=== PATIENT | female | born 1955 | race Caucasian/White ===

== ENCOUNTER → 2017-10-14 | Outpatient (CLI) | payer OTHER ==
[~2017-10-14] MED LIST: CELEXA; CONCERTA; SERT100 PO; WELLBUTRIN
[2017-10-14 15:45] LABS: Source, Urine Clean Catch
[2017-10-14 16:17] LABS: Appearance, Urine Hazy (Clear); Bilirubin, Urine Neg (Neg); Blood, Urine 5+ (Neg); Color, Urine Yellow (P-Yellow); Glucose Qualitative, Urine Neg (Neg); Ketones, Urine Neg (Neg); Leukocyte Esterase, Urine 1+ (Neg); Nitrite, Urine Neg (Neg); Protein, Urine 2+ (Neg); Urobilinogen, Urine NORM (Normal)
[2017-10-14 16:35] LABS: Bacteria Mod /hpf; Red Blood Cells, Urine 25-50 /hpf (0-2); Squamous Epithelial Cells Mod /hpf (Few)
== END | disposition home or self-care (01) ==
LOC: LAB 15:44
PROVIDERS: Family Medicine
DX: R35.0 Frequency of micturition (principal)
CPT/HCPCS: 81001; 87086

== ENCOUNTER → 2017-10-17 | Outpatient (CLI) | payer OTHER ==
[2017-10-17 16:04] LABS: Source, Urine Clean Catch
[2017-10-17 16:12] LABS: Bilirubin, Urine Neg (Neg); Blood, Urine 3+ (Neg); Glucose Qualitative, Urine Neg (Neg); Ketones, Urine Neg (Neg); Leukocyte Esterase, Urine Neg (Neg); Nitrite, Urine Neg (Neg); Protein, Urine Neg (Neg); Urobilinogen, Urine NORM (Normal)
[2017-10-17 16:16] LABS: Appearance, Urine Clear (Clear); Color, Urine Yellow (P-Yellow)
[2017-10-17 16:22] LABS: Squamous Epithelial Cells Few /hpf (Few); White Blood Cells, Urine 0-2 /hpf (0-5)
[2017-10-17 16:23] LABS: Bacteria Mod /hpf; Calcium Oxalate Crystals Mod /hpf
== END | disposition home or self-care (01) ==
LOC: LAB SHORT 14:30
PROVIDERS: Family Medicine
DX: R30.0 Dysuria (principal)
CPT/HCPCS: 81001; 87086

== ENCOUNTER → 2017-10-21 | Outpatient (CLI) | payer OTHER | END | disposition home or self-care (01) | LOC: LAB 16:29 | DX: R10.2 Pelvic and perineal pain (principal) | CPT/HCPCS: 82360 ==

== ENCOUNTER 2017-11-05 09:48 | Emergency (ER) | payer OTHER ==
[~2017-11-05] VITALS: Ht 172.7 cm; Wt 116.1 kg
[~2017-11-05 09:48] MED LIST changes: -SERT100 PO
[2017-11-05] MEDS ORDERED: SERT100 PO (10:16)
[2017-11-05 10:32] LABS: BASOPHILS ABSOLUTE AUTO 0.03 K/mm3 (0.00-0.23); BASOPHILS PERCENT AUTO 0 % (0-2); EOSINOPHILS ABSOLUTE AUTO 0.23 K/mm3 (0.00-0.68); EOSINOPHILS PERCENT AUTO 3 % (0-6); Hematocrit 45.3 % (33.0-51.0); Hemoglobin 13.7 g/dL (11.5-16.0); IMMATURE GRAN ABSOLUTE AUTO 0.02 K/mm3 (0.00-0.10); IMMATURE GRAN PERCENT AUTO 0 % (0-1); LYMPHOCYTES ABSOLUTE AUTO 1.64 K/mm3 (0.84-5.20); LYMPHOCYTES PERCENT AUTO 24 % (21-46); MONOCYTES ABSOLUTE AUTO 0.58 K/mm3 (0.16-1.47); MONOCYTES PERCENT AUTO 8 % (4-13); Mean Corpuscular HGB 26.9 pg (26.0-34.0); Mean Corpuscular HGB Conc 30.2 g/dL (31.5-36.5); Mean Corpuscular Volume 89 fL (80-100); NEUTROPHILS ABSOLUTE AUTO 4.46 K/mm3 (1.96-9.15); NEUTROPHILS PERCENT AUTO 64 % (41-73); RDW Coefficient Variation 15.1 % (11.7-14.2); RDW Standard Deviation 49.3 fL (35.1-46.3); Red Blood Cell Count 5.09 M/mm3 (3.80-5.20); White Blood Cell Count 6.96 K/mm3 (4.00-11.30)
[2017-11-05 10:36] LABS: Mean Platelet Volume 11.2 fL (9.1-12.4); Platelet Count 151 K/mm3 (150-400)
[2017-11-05 10:46] LABS: Troponin I <0.015 ng/mL (0.000-0.040)
[2017-11-05 11:07] LABS: Alanine Aminotransfer (ALT/SGP 17 U/L (12-78); Albumin, Blood 3.4 g/dL (3.4-5.0); Albumin/Globulin Ratio 0.8 (0.8-1.8); Alk Phos 107 U/L (50-136); Anion Gap 7 mmol/L (6-16); Aspartate Aminotrans (AST/SGOT 32 U/L (12-37); Bilirubin, Total 0.8 mg/dL (0.1-1.0); Blood Urea Nitrogen 13 mg/dL (8-24); Bun/Creatinine Ratio 21.7 (12.0-20.0); CO2, Blood 21 mmol/L (21-32); Calcium, Blood 9.4 mg/dL (8.5-10.1); Chloride, Blood 114 mmol/L (98-108); Globulin, Blood 4.2 g/dL (2.2-4.0); Glomerular Filtration Rate >60 (60-); Glucose, Blood 101 mg/dL (70-99); Potassium, Blood 5.1 mmol/L (3.5-5.5); Sodium, Blood 142 mmol/L (136-145); Total Protein, Blood 7.6 g/dL (6.4-8.2)
== END 2017-11-05 12:15 | disposition home or self-care (01) ==
LOC: ER 09:48
PROVIDERS: Emergency Medicine
DX: M54.12 Radiculopathy, cervical region (principal); Z88.1 Allergy status to other antibiotic agents; Z79.899 Other long term (current) drug therapy
CPT/HCPCS: 36415; 71046; 72040; 80053; 84484; 85025; 93005; 93010; 99284

== ENCOUNTER 2018-10-19 06:40 | Inpatient (IN) | payer OTHER ==
[~2018-10-19] VITALS: Ht 167.6 cm; Wt 120.2 kg
[~2018-10-19 06:40] MED LIST changes: +SERT100 PO
[2018-10-19] MEDS ORDERED: CYAN500 PO (07:43)
[2018-10-19] MEDS ORDERED: CHOL10002 (07:44)
[2018-10-19 07:50] LABS: PCO2 Arterial 37 mmHg (35-45); PO2 Arterial 75 mmHg (80-100); pH Blood Arterial 7.37 (7.35-7.45)
[2018-10-19 07:58] LABS: Albumin, Blood 3.6 g/dL (3.4-5.0); Albumin/Globulin Ratio 0.8 (0.8-1.8); Anion Gap 12 mmol/L (6-16); Blood Urea Nitrogen 11 mg/dL (8-24); Bun/Creatinine Ratio 11.8 (12.0-20.0); CO2, Blood 22 mmol/L (21-32); Calcium, Blood 9.5 mg/dL (8.5-10.1); Chloride, Blood 109 mmol/L (98-108); Creatinine, Blood 0.93 mg/dL (0.40-1.00); Globulin, Blood 4.3 g/dL (2.2-4.0); Glomerular Filtration Rate >60 (60-); Glucose, Blood 136 mg/dL (70-99); Magnesium, Blood 2.3 mg/dL (1.6-2.4); Potassium, Blood 3.8 mmol/L (3.5-5.5); Sodium, Blood 143 mmol/L (136-145); Total Protein, Blood 7.9 g/dL (6.4-8.2)
[2018-10-19 07:59] LABS: Alanine Aminotransfer (ALT/SGP 20 U/L (12-78); Alk Phos 102 U/L (50-136); Aspartate Aminotrans (AST/SGOT 15 U/L (12-37); Bilirubin, Total 0.9 mg/dL (0.1-1.0); Troponin I 0.065 ng/mL (0.000-0.040)
[2018-10-19 08:38] LABS: BASOPHILS ABSOLUTE AUTO 0.02 K/mm3 (0.00-0.23); BASOPHILS PERCENT AUTO 0 % (0-2); EOSINOPHILS ABSOLUTE AUTO 0.01 K/mm3 (0.00-0.68); EOSINOPHILS PERCENT AUTO 0 % (0-6); Hematocrit 45.3 % (33.0-51.0); Hemoglobin 13.9 g/dL (11.5-16.0); IMMATURE GRAN ABSOLUTE AUTO 0.06 K/mm3 (0.00-0.10); IMMATURE GRAN PERCENT AUTO 0 % (0-1); LYMPHOCYTES ABSOLUTE AUTO 1.16 K/mm3 (0.84-5.20); LYMPHOCYTES PERCENT AUTO 8 % (21-46); MONOCYTES PERCENT AUTO 6 % (4-13); Mean Corpuscular HGB 27.5 pg (26.0-34.0); Mean Corpuscular HGB Conc 30.7 g/dL (31.5-36.5); Mean Corpuscular Volume 90 fL (80-100); NEUTROPHILS ABSOLUTE AUTO 11.88 K/mm3 (1.96-9.15); NEUTROPHILS PERCENT AUTO 85 % (41-73); RDW Coefficient Variation 15.2 % (11.7-14.2); RDW Standard Deviation 50.4 fL (35.1-46.3); Red Blood Cell Count 5.06 M/mm3 (3.80-5.20); White Blood Cell Count 14.03 K/mm3 (4.00-11.30)
[2018-10-19 08:48] LABS: Mean Platelet Volume 11.8 fL (9.1-12.4)
[2018-10-19 09:03] LABS: Platelet Count 114 K/mm3 (150-400)
[2018-10-19 09:12] LABS: Influenza A Negative (NEGATIVE); Influenza B Negative (NEGATIVE)
[2018-10-19 10:20] LABS: Source, Urine Clean Catch
[2018-10-19 10:27] LABS: Appearance, Urine Clear (Clear); Bilirubin, Urine Neg (Neg); Blood, Urine 2+ (Neg); Color, Urine Yellow (P-Yellow); Glucose Qualitative, Urine Neg (Neg); Ketones, Urine 2+ (Neg); Leukocyte Esterase, Urine 1+ (Neg); Nitrite, Urine Neg (Neg); Protein, Urine 2+ (Neg); Specific Gravity, Urine 1.015 (1.003-1.022); Urobilinogen, Urine 1+ (Normal)
[2018-10-19 10:44] LABS: Red Blood Cells, Urine 0-2 /hpf (0-2); Squamous Epithelial Cells Mod /hpf (Few)
[2018-10-19 10:45] LABS: Bacteria Few /hpf; Mucus Light (0-Heavy)
[2018-10-19 10:46] LABS: Transitional Epithelial Cells Few /hpf (0-Rare)
[2018-10-19 15:50] LABS: International Normalized Ratio 1.08; Prothrombin Time Results 11.4 Sec (9.7-11.5)
--- NOTE | 2018-10-19 18:52 | NUR ---
increased o2 to 3l to maintain spo2 saturation greater than 90%. notified. requested cont biox, approved. order placed.
--- NOTE | 2018-10-19 23:28 | NUR ---
SHIFT SUMMARY PATIENT STARTED ON HEPARIN FOR PE, RATE PER PHARMACY. SHE IS PLEASANT, AGREEABLE AND COOPERATIVE WITH CARE. POWERGLIDE PLACED IN LEFT UPPER ARM BY MICKEY LAWRENCE RN RUNNING PER ORDERS. SHE IS A ONE PERSON STANDBY ASSIST TO THE BEDSIDE COMMODE. SHE DOES NEED SOME ASSISTANCE WITH HER LEGS IN/OUT OF BED. CURRENTLY ON 3L VIA NC, NO O2 AT BASELINE. BED LOW AND LOCKED, CALL LIGHT WITHIN REACH. PATIENT CALLS APPROPRIATELY. WILL CONT TO MONITOR.
[2018-10-20 06:27] LABS: Hematocrit 36.6 % (33.0-51.0); Mean Corpuscular HGB 27.4 pg (26.0-34.0); Mean Corpuscular HGB Conc 30.1 g/dL (31.5-36.5); Mean Corpuscular Volume 91 fL (80-100); Mean Platelet Volume 11.5 fL (9.1-12.4); Platelet Count 116 K/mm3 (150-400); RDW Coefficient Variation 15.7 % (11.7-14.2); RDW Standard Deviation 52.9 fL (35.1-46.3); Red Blood Cell Count 4.02 M/mm3 (3.80-5.20); White Blood Cell Count 8.14 K/mm3 (4.00-11.30)
[2018-10-20 06:42] LABS: Anion Gap 6 mmol/L (6-16); Blood Urea Nitrogen 8 mg/dL (8-24); Bun/Creatinine Ratio 8.7 (12.0-20.0); CO2, Blood 24 mmol/L (21-32); Calcium, Blood 8.9 mg/dL (8.5-10.1); Chloride, Blood 114 mmol/L (98-108); Creatinine, Blood 0.92 mg/dL (0.40-1.00); Glomerular Filtration Rate >60 (60-); Glucose, Blood 105 mg/dL (70-99); Sodium, Blood 144 mmol/L (136-145)
--- NOTE | 2018-10-20 08:12 | NUR ---
SHIFT SUMMARY:NO ACUTE CHANGES TO REPORT THIS SHIFT. PT A&O; CALM AND COOPERATIVE WITH CARE. LLL INFILTRATE; SADDLE PE; LOW PERFUSION INDEX ON CONT BIOX; PT USES CPAP @ HOME; CPAP ORDERED WITH RT. CONTINUOUS HEPARIN DRIP. REPORT GIVEN TO ONCOMING RN.
--- NOTE | 2018-10-20 12:05 | NUR ---
Echocardiogram completed.
--- NOTE | 2018-10-20 16:48 | NUR ---
PATIENT ALERT AND ORIENTED. HEPARIN RUNNING PER PHARM. US LEGS BEING DONE.C/O LEFT SHLDR PAIN AND MEDICATED WITH GOOD RESULTS. OXYGEN ON AND CONTINUOUS SAT MONITOR. S.O. IS TO BRING IN CPAP MACHINE. PLEASANT. COOPERATIVE. PER TECH PATIENT POSITIVE DVT LEFT LEG POPLITEAL THRU CALF. CALLED W/RESULTS AND PATIENT RUNNING 90 SYSTOLIC TODAY. ADMIT WAS 103 SYSTOLIC SO POSSIBLY PATIENT RUNS LOW. NO NEW ORDERS. PULMONARY CONSULT CALLED EARLIER. BED IN LOW POSITION. CALL LIGHT WITHIN REACH. WILL CONTINUE TO MONITOR.
--- NOTE | 2018-10-20 16:50 | NUR ---
PHARMACIST NOTIFIED OF LABS IN [facility].
--- NOTE | 2018-10-21 04:47 | NUR ---
4,200 UNIT HEPARIN BOLUS RECIEVED AND HEPARIN GTT INCREASED TO 23 UN/KG/HR (38.6 ML/HR), VERIFIED W/2ND TATI PICHARDO. NEXT APTT AT 1000.
--- NOTE | 2018-10-21 05:07 | NUR ---
SUMMARY: A/O, SPECIFIES NEEDS AND COOPERATIVE W/CARE. REMAINED AT BEDSIDE T/O NOCTE AND HAD CONVERSATION W/STAFF RE:DIAGNOSIS, TX, OUTCOMES AND POSSIBLE D/C. 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 HE WAS UNSURE OF IT'S NAME BUT PLANS TO DISCUSS THIS W/HIS AND LET STAFF KNOW SO SHE CAN POSSIBLY BE TESTED POTENTIAL CAUSE FOR BLOOD CLOTS. PT INITIALLY C/O L.SIDE/BREAST PAIN LIKELY R/T TO INFARCT CAUSED BY SADDLE PE. TORADOL RECIEVED PO PRN FOR GOOD RELIEF. PRESENT AND AWARE OF PAIN SO FENTANYL IV PRN WAS RX'D AT THAT TIME BUT WASN'T REQUIRED AFTER TORADOL. O2 WAS TITRATED UP TO 4L BLEED IN VIA CPAP AT HS TO MAINTAIN SPO2>90%. LS CLEAR AND DIM IN BASES. MILD SOB NOTED W/ANXIETY R/T SIDE PAIN BUT PT DENIED PAIN AND TROBBING TO LLE DESPITE DVT PRESENT EXTENDING FROM FEMORAL VEIN THROUGH POPLITEAL INTO CALF. HEPARIN GTT INFUSING TO R.FA IV W/4200 UNIT BOLUS RECIEVED AND RATE INCREASED TO 23 UN/KG/HR (38.6 ML/HR). NEXT APTT AT 1000. PT SBP IS IMPROVED FROM PREVIOUS, NOW 120-130'S. PT NSR AT 60'S-80'S BPM PER TELEMETRY W/O ECTOPIES. NS INFUSING TO L.UA POWERGLIDE. NO ACUTE CHANGES, VSS/AFEBRILE. WILL MONITOR AND REPORT TO DAY RN. PULMONOLOGY CONSULT PENDING, WILL ENSURE DAY STAFF ARE AWARE.
[2018-10-21 05:54] LABS: Hematocrit 33.4 % (33.0-51.0); Hemoglobin 10.1 g/dL (11.5-16.0); Mean Corpuscular HGB 27.7 pg (26.0-34.0); Mean Corpuscular HGB Conc 30.2 g/dL (31.5-36.5); Mean Corpuscular Volume 92 fL (80-100); Mean Platelet Volume 12.4 fL (9.1-12.4); Platelet Count 127 K/mm3 (150-400); RDW Coefficient Variation 15.6 % (11.7-14.2); RDW Standard Deviation 52.6 fL (35.1-46.3); Red Blood Cell Count 3.65 M/mm3 (3.80-5.20); White Blood Cell Count 6.88 K/mm3 (4.00-11.30)
--- NOTE | 2018-10-22 00:51 | NUR ---
PATIENT REPORTS INCREASE PAIN AND N/T TO RIGHT LEG; STARTING AT RIGHT LIP AND FACE. L PUPIL LARGER 5 PLUS TO RIGHT PUPIL 4MM PLUS. PUPILS EQUAL AND REACTIVE. LIFE ENRICHMENT ASSISTANT EQUAL AND SMILE WNL. ON HEPARIN DRIP 42 ml/HR MONITOR BY PHARMACY. DVT LEFT LEG. PATIENT ALERT AND ORIENTED. FAMILY PRESENT IN ROOM. HOSPITALIST DR SWANSON NOTIFIED AND REPORTS TO CONTINUE TO MONITOR. INDUSTRIAL EQUIPMENT MECHANIC RN ASSESSED PATIENT AFTER REPORTING THE ABOVE AND RN. NS INFUSING AT 75mL/HR. CALL LIGHT IN REACH. WILL CONTINUE TO MONITOR.
[2018-10-22 03:38] LABS: Hematocrit 32.7 % (33.0-51.0); Hemoglobin 9.8 g/dL (11.5-16.0); Mean Corpuscular HGB 27.1 pg (26.0-34.0); Mean Corpuscular Volume 90 fL (80-100); Mean Platelet Volume 11.4 fL (9.1-12.4); NRBC ABSOLUTE 0.02 K/mm3 (0.00-0.02); NRBC Auto 0.4 /100 WBC (0.0-0.2); Platelet Count 156 K/mm3 (150-400); RDW Coefficient Variation 15.2 % (11.7-14.2); RDW Standard Deviation 50.6 fL (35.1-46.3); Red Blood Cell Count 3.62 M/mm3 (3.80-5.20); White Blood Cell Count 5.49 K/mm3 (4.00-11.30)
--- NOTE | 2018-10-22 04:01 | NUR ---
PATIENT REPORTS REDUCED N/T AND PAIN. N/T FROM TOES UP TO LOWER THIGH ONLY ON RIGHT LEG. PUPILS REDUCED TO 3MM RIGHT AND LEFT EQUAL AND REACTIVE. DEPOT MANAGER STRONG AND EQUAL. SMILE WNL. PATIENT REPORTS FEELING BETTER. CALL LIGHT IN REACH. BED IN LOWEST POSITION. WILL CONTINUE TO MONITOR.
--- NOTE | 2018-10-22 04:24 | NUR ---
SHIFT SUMMARY PATIENT HAD AN ACUTE CHANGE. REPORTED PAIN AND N/T IN RIGHT LEG FROM TOES UP TO RIGHT LIP AND FACE. SEE NOTES. HOSPITALIST DR SWANSON NOTIFIED. PATIENT AXOX 4 AND ONE ASSIST TO BSC. TAKES MEDS WHOLE WITH WATER. POWEGLIDE NORMA INTACT. PIV INFILTRATED AND REPLACED. HEPARIN INFUSING AT 42mL/HR AND NS INFUSING AT 75mL/HR. BOLUS OF HEPARIN 4,200 GIVEN PER [facility]. DENIES SOB AND N/V. TORADOL GIVEN FOR LS RIB PAIN AND PATIENT REPORTS REDUCED PAIN. ON 4L O2 W/CPAP AND CONTINUOUS PULSE OXIMETRY. PRESENT AT BEDSIDE. VSS/AFEBRILE. CALL LIGHT IN REACH. WILL CONTINUE TO MONITOR UNTIL DAY SHIFT NURSE ASSUMES CARE.
--- NOTE | 2018-10-22 18:33 | NUR ---
SHIFT SUMMARY- PT AXO X4. PT C/O RIB PAIN. MEDS GIVEN PER [facility]. PT DENIES SOB. RESP E/U ON 2L O2 NC. DENIES N/V. PT CONT TO C/O NUMBNESS IN R THIGH. AWARE. NO NEW NEURO CHANGES THIS SHIFT. NSR AT 68 PER PCU STAY CUTTER. HEPARIN DRIP DISCONTINUED. PT STARTED ON XARELTO. AT BEDSIDE. 1 ASSIST WITH FWW TO BSC. PT BROUGHT IN MED RECORD REQUESTED AND IS ON THE FRONT OF THE CHART. NO OTHER SIGNIFICANT CHANGES THIS SHIFT.
--- NOTE | 2018-10-23 03:02 | NUR ---
SHIFT SUMMARY PATIENT HAD NO ACUTE CHANGES OBSERVED THIS SHIFT. AXO X3 AND ONE ASSIST TO BSC. POWERGLIDE NORMA AND PIV REMAIN INTACT. NS INFUSING AT 75 mL/HR. C/O RIB PAIN AND TORADOL IV GIVEN PER [facility]. NUMBNESS ONLY TO R THIGH THIS SHIFT. KILN HEAD HOUSE OPERATOR REPORTS SB 57. AT BEDSIDE. VSS/AFEBRILE. ON 2.5 L O2 NC. USES CPAP WITH CONTINUOUS PULSE OXIMETRY. CALL LIGHT IN REACH. BED IN LOWEST POSITION. WILL CONTINUE TO MONITOR UNTIL DAY SHIFT NURSE ASSUMES CARE.
[2018-10-23 05:33] LABS: Hematocrit 33.3 % (33.0-51.0); Hemoglobin 10.1 g/dL (11.5-16.0); Mean Corpuscular HGB 27.2 pg (26.0-34.0); Mean Corpuscular HGB Conc 30.3 g/dL (31.5-36.5); Mean Corpuscular Volume 90 fL (80-100); Mean Platelet Volume 11.1 fL (9.1-12.4); NRBC ABSOLUTE 0.04 K/mm3 (0.00-0.02); NRBC Auto 0.9 /100 WBC (0.0-0.2); Platelet Count 178 K/mm3 (150-400); RDW Coefficient Variation 14.9 % (11.7-14.2); RDW Standard Deviation 49.2 fL (35.1-46.3); Red Blood Cell Count 3.72 M/mm3 (3.80-5.20); White Blood Cell Count 4.49 K/mm3 (4.00-11.30)
--- NOTE | 2018-10-23 19:12 | NUR ---
NO ACUTE CHANGES NOTED THIS SHIFT, NO C/O PAIN OR DISCOMFORT. WILL CONTINUE TO MONITOR AND REPORT TO ONCOMING RN
--- NOTE | 2018-10-24 05:27 | NUR ---
SHIFT SUMMARY PT SLEPT WELL DURING THE NIGHT, UP TO BATHROOM X1 PER SELF. OFFERS NO C/O'S PAIN. NO ACUTE CHANGES NOTED, CPAP ON DURING THE NIGHT. WILL CONTINUE TO MONITOR.
[2018-10-24] MEDS ORDERED: Acetaminophen325 M1 PO (11:20)
[2018-10-24] MEDS ORDERED: XARELTO15 MG PO (11:21)
[2018-10-24] MEDS ORDERED: XARELTO20 MG PO (11:22)
[2018-10-24] MEDS ORDERED: ALBU90OI INH (11:23)
--- NOTE | 2018-10-24 14:16 | NUR ---
DISCHARGE SUMMARY PT A&OX4. CALM AND COOPERTAIVE WITH CARE. PT RESTING IN BED DURING SHIFT. UP IND TO BATHROOM. PT SOB WITH EXERTION, >90% ON RA DURING SHIFT. PT ON CPAP AT [facility]. PT DENIES PAIN AND N/V DURING SHIFT. PT TAKING XARELTO FOR PE. VSS. NO OTHER ACUTE CHANGES NOTED DURING SHIFT. PT/SO EDUCATED ON DISCAHRGE ORDERS, MEDICATIONS AND FOLLOW UP APPOINTMENTS. PRESCRIPTIONS FAXED TO [facility] IN [place], PER PT REQUEST. PT LEFT ROOM VIA WHEELCHAIR AT 1245. PT STABLE UPON DISCHARGE.
== END 2018-10-24 12:46 | disposition home or self-care (01) | DRG 871 ==
LOC: ER 06:40 → MEDS 09:27 → ENPENDDIS 10-24 10:48 → MEDS 10-24 12:46
PROVIDERS: Emergency Medicine; ADMIT Internal Medicine
DX: A41.9 Sepsis, unspecified organism (principal); I26.92 Saddle embolus of pulmonary artery without acute cor pulmonale; J96.01 Acute respiratory failure with hypoxia; J18.9 Pneumonia, unspecified organism; R65.20 Severe sepsis without septic shock; I10 Essential (primary) hypertension; F41.9 Anxiety disorder, unspecified; F32.9 Major depressive disorder, single episode, unspecified; G47.33 Obstructive sleep apnea (adult) (pediatric); E66.01 Morbid (severe) obesity due to excess calories; K21.9 Gastro-esophageal reflux disease without esophagitis; M72.2 Plantar fascial fibromatosis; M54.16 Radiculopathy, lumbar region; G25.0 Essential tremor; Z88.1 Allergy status to other antibiotic agents; Z79.899 Other long term (current) drug therapy; Z99.81 Dependence on supplemental oxygen
CPT/HCPCS: 36415; 36600; 71046; 71260; 80048; 80053; 81001; 82803; 83605; 83735; 83880; 84484; 85025; 85027; 85379; 85610; 85730; 87040; 87086; 87804; 93005; 93010; 93306; 93970; 94640; 94762; 96361; 96365; 97163; 97530; 99285-25; J0456; J0692; J0696; J1644; J1885; J3370; J7030; J7050; Q9967

== ENCOUNTER → 2019-06-29 | Outpatient (CLI) | payer OTHER ==
[~2019-06-29] MED LIST changes: +ALBU90OI INH; +Acetaminophen325 M1 PO; +CHOL10002; +CYAN500 PO; +XARELTO15 MG PO; +XARELTO20 MG PO
[2019-06-30 13:38] LABS: Stool Occult Bld Immuno 1 Negative (NEGATIVE)
== END | disposition home or self-care (01) ==
LOC: OLS 17:30 → LAB SHORT 17:30 → LAB FUT 06-29 16:00
PROVIDERS: Family Medicine
DX: Z13.220 Encounter for screening for lipoid disorders (principal)
CPT/HCPCS: G0328

== ENCOUNTER 2021-01-23 11:59 | Day surgery (SDC) | payer OTHER ==
[~2021-01-23] VITALS: Ht 172.7 cm; Wt 134.2 kg
[2021-01-23] MEDS ORDERED: ATOR40TA PO (13:07)
--- NOTE | 2021-01-23 13:25 | NUR ---
01/23/21 Jasmeet Cochran THREE IV ATTEMPTS, ONE ON LEFT HAND AND INFILTRATED. ONE ON LEFT FOREARM, INFILTRATED. THIRD ATTEMPT ON LEFT HAND SUCCESSFUL. PT TOLERATED ALL IV ATTEMPTS WELL. PT SMILING AND LAUGHING IN THE ROOM
[2021-01-24 15:11] LABS: HPV 16 Negative (Negative); HPV 18 Negative (Negative); HPV OTHER HR TYPES Negative (Negative)
== END 2021-01-23 15:18 | disposition home or self-care (01) ==
LOC: ORSCSDS 11:59
PROVIDERS: Obstetrics & Gynecology
PROC: 0UDB8ZX Extraction of Endometrium, Via Natural or Artificial Opening Endoscopic, Diagnostic (ICD-10-PCS; principal; 2021-01-23 13:30)
DX: N95.0 Postmenopausal bleeding (principal); D25.9 Leiomyoma of uterus, unspecified; N84.0 Polyp of corpus uteri; I10 Essential (primary) hypertension; J44.9 Chronic obstructive pulmonary disease, unspecified; G47.33 Obstructive sleep apnea (adult) (pediatric); Z79.01 Long term (current) use of anticoagulants; E66.01 Morbid (severe) obesity due to excess calories; Z68.42 Body mass index [BMI] 45.0-49.9, adult; Z79.899 Other long term (current) drug therapy
CPT/HCPCS: 87624; 88305; A9270; G0123; J1100; J1885; J2250; J2405; J2704; J3010; J7120

== ENCOUNTER → 2024-05-29 | Outpatient (CLI) | payer OTHER ==
[~2024-05-29] MED LIST changes: +ATOR40TA PO
[2024-05-31 12:26] LABS: Stool Occult Bld Immuno 1 Negative (NEGATIVE)
== END ==
LOC: LAB 09:13 → LAB SHORT 09:13
PROVIDERS: Family Medicine
DX: Z12.11 Encounter for screening for malignant neoplasm of colon (principal)
CPT/HCPCS: G0328

== ENCOUNTER → 2024-12-08 | Outpatient (CLI) | payer OTHER ==
[2024-12-08 13:02] LABS: BASOPHILS ABSOLUTE AUTO 0.03 K/mm3 (0.00-0.23); BASOPHILS PERCENT AUTO 1 % (0-2); EOSINOPHILS ABSOLUTE AUTO 0.11 K/mm3 (0.00-0.68); EOSINOPHILS PERCENT AUTO 2 % (0-6); Hematocrit 49.9 % (33.0-51.0); Hemoglobin 15.3 g/dL (11.5-16.0); IMMATURE GRAN ABSOLUTE AUTO 0.03 K/mm3 (0.00-0.10); IMMATURE GRAN PERCENT AUTO 1 % (0-1); LYMPHOCYTES ABSOLUTE AUTO 1.97 K/mm3 (0.84-5.20); LYMPHOCYTES PERCENT AUTO 31 % (21-46); MONOCYTES ABSOLUTE AUTO 0.57 K/mm3 (0.16-1.47); MONOCYTES PERCENT AUTO 9 % (4-13); Mean Corpuscular HGB 27.1 pg (26.0-34.0); Mean Corpuscular HGB Conc 30.7 g/dL (31.5-36.5); Mean Corpuscular Volume 88 fL (80-100); NEUTROPHILS ABSOLUTE AUTO 3.75 K/mm3 (1.96-9.15); NEUTROPHILS PERCENT AUTO 58 % (41-73); NRBC ABSOLUTE 0.02 K/mm3 (0.00-0.02); NRBC Auto 0.3 /100 WBC (0.0-0.2); Platelet Count 108 K/mm3 (150-400); RDW Standard Deviation 56.9 fL (35.1-46.3); Red Blood Cell Count 5.65 M/mm3 (3.80-5.20); White Blood Cell Count 6.46 K/mm3 (4.00-11.30)
[2024-12-08 13:24] LABS: Alanine Aminotransfer (ALT/SGP 17 U/L (12-78); Albumin, Blood 3.6 g/dL (3.4-5.0); Alk Phos 112 U/L (50-136); Anion Gap 10 mmol/L (3-11); Aspartate Aminotrans (AST/SGOT 13 U/L (12-37); Bilirubin, Total 0.7 mg/dL (0.1-1.0); Blood Urea Nitrogen 14 mg/dL (8-24); Bun/Creatinine Ratio 17.1 (12.0-20.0); CHOL/HDL RATIO 3.6; CO2, Blood 26 mmol/L (21-32); Calcium, Blood 9.6 mg/dL (8.5-10.1); Chloride, Blood 108 mmol/L (98-108); Cholesterol 175 mg/dL (50-200); Creatinine, Blood 0.82 mg/dL (0.40-1.00); Globulin, Blood 3.7 g/dL (2.2-4.0); Glomerular Filtration Rate 78 (60-); Glucose, Blood 95 mg/dL (70-99); HDL Cholesterol 49 mg/dL (>39); LDL/HDL RATIO 1.9; Low Density Lipoprotein Chol 91 mg/dL (0-110); Potassium, Blood 3.8 mmol/L (3.5-5.5); Sodium, Blood 140 mmol/L (136-145); Total Protein, Blood 7.3 g/dL (6.4-8.2); Triglycerides 175 mg/dL (30-160); Very Low Density Lipoprot Chol 35 mg/dL (6-32)
== END | disposition home or self-care (01) ==
LOC: LAB 10:24 → LAB SHORT 10:24
PROVIDERS: Family Medicine
DX: Z51.81 Encounter for therapeutic drug level monitoring (principal); E66.01 Morbid (severe) obesity due to excess calories; E78.5 Hyperlipidemia, unspecified; Z79.01 Long term (current) use of anticoagulants
CPT/HCPCS: 80053; 80061; 84443; 85025

== ENCOUNTER → 2025-03-11 | Outpatient (CLI) | payer OTHER | LOC: LAB 07:54 → LAB SHORT 07:54 | DX: N84.0 Polyp of corpus uteri (principal) | CPT/HCPCS: 88305 ==

== ENCOUNTER 2025-05-19 14:25 | Inpatient (IN) | payer OTHER ==
[~2025-05-19] VITALS: Ht 167.6 cm; Wt 154.9 kg
[2025-05-19 14:58] LABS: BASOPHILS ABSOLUTE AUTO 0.04 K/mm3 (0.00-0.23); BASOPHILS PERCENT AUTO 1 % (0-2); EOSINOPHILS ABSOLUTE AUTO 0.09 K/mm3 (0.00-0.68); EOSINOPHILS PERCENT AUTO 1 % (0-6); Hematocrit 47.6 % (33.0-51.0); Hemoglobin 13.5 g/dL (11.5-16.0); IMMATURE GRAN ABSOLUTE AUTO 0.04 K/mm3 (0.00-0.10); IMMATURE GRAN PERCENT AUTO 1 % (0-1); LYMPHOCYTES ABSOLUTE AUTO 1.38 K/mm3 (0.84-5.20); LYMPHOCYTES PERCENT AUTO 21 % (21-46); MONOCYTES ABSOLUTE AUTO 0.59 K/mm3 (0.16-1.47); MONOCYTES PERCENT AUTO 9 % (4-13); Mean Corpuscular HGB Conc 28.4 g/dL (31.5-36.5); Mean Corpuscular Volume 79 fL (80-100); NEUTROPHILS ABSOLUTE AUTO 4.34 K/mm3 (1.96-9.15); NEUTROPHILS PERCENT AUTO 67 % (41-73); NRBC ABSOLUTE 0.12 K/mm3 (0.00-0.02); NRBC Auto 1.9 /100 WBC (0.0-0.2); Platelet Count 147 K/mm3 (150-400); RDW Coefficient Variation 20.6 % (11.7-14.2); RDW Standard Deviation 55.4 fL (35.1-46.3)
[2025-05-19] MEDS ORDERED: BUPROPION XL150 M1 PO (15:17)
[2025-05-19] MEDS ORDERED: COQ-10100 MG (15:19)
[2025-05-19 15:29] LABS: Alanine Aminotransfer (ALT/SGP 27.0 U/L (12-78); Albumin, Blood 3.0 g/dL (3.4-5.0); Albumin/Globulin Ratio 0.8 (0.8-1.8); Anion Gap 9.0 mmol/L (3-11); Aspartate Aminotrans (AST/SGOT 29.0 U/L (12-37); Bilirubin, Total 1.2 mg/dL (0.1-1.0); Blood Urea Nitrogen 15.0 mg/dL (8-24); CO2, Blood 25.0 mmol/L (21-32); Calcium, Blood 8.6 mg/dL (8.5-10.1); Chloride, Blood 110.0 mmol/L (98-108); Creatinine, Blood 1.03 mg/dL (0.40-1.00); Globulin, Blood 4.0 g/dL (2.2-4.0); Glucose, Blood 96.0 mg/dL (70-99); Potassium, Blood 4.6 mmol/L (3.5-5.5); Sodium, Blood 139.0 mmol/L (136-145); Total Protein, Blood 7.0 g/dL (6.4-8.2)
[2025-05-19] MEDS ORDERED: Furosemide 10 MG / ML 2ML Vial IV ONE (16:35)
[2025-05-19] MEDS ORDERED: Ondansetron HCl 2 MG / ML 2ML Vial IV PRN (18:10)
[2025-05-19] MEDS ORDERED: FLU VACC TS2025(65UP)/MF59C/PF 45 MCG/0.5 ML SYRINGE IM SCH (18:15)
[2025-05-19] MEDS ORDERED: HydrALAZINE HCl 20 MG / ML 1ML Vial IV PRN (18:35)
[2025-05-19 20:18] LABS: Influenza A/2009-H1 Not Detected (NOT DETECT); SARS-Cov-2 (COVID-19), BioFire Not Detected (NOT DETECT)
[2025-05-19 22:08] VITALS: BP 170/70
--- NOTE | 2025-05-19 22:43 | NUR ---
PT ARRIVES TO UNIT AT 2120, REPORT RECEIVED FROM LETA DUFFY IN ER. PT IS A/OX4, ON 10L NONREABREATHER, SATS IN 80'S. RT CALLED FOR ASSESSMENT, PT QUICKLY PLACED ON V60 WITH CPAP SETTINGS EPAP 12 AND FIO2 40% AND SATS CURRENTLY IN 90'S. BREATH SOUNDS ARE COARSE AND DIM IN BASES. USES A CPAP AT NIGHT AT BASELINE. PURWICK IN PLACE FOR CHRONIC INCONTINENCE AND DRAINING TO SUCTION. URINE IS CLEAR AND YELLOW. SHE IS BEING DUIRESESED AT THIS TIME. ON CONTINUOUS CARDIAC TELEMETRY, IN SINUS CYRUS WITH HR IN 40'S-50'S. BP 170'S-180'S SYSTOLIC. EDEMA IN BLE 2+, NON PITTING, PT STATES THIS IS NORMAL FOR HER, ALSO STATES SHE DOES NOT TAKE HER DIURETICS ORDERED DUE TO INCREASED OUTPUT AND INCONTINENCE. SHE LIVES AT HOME WITH HER PARTNER. SHE IS INDEPENDENT IN ADL'S, BUT REQUIRES CANE/FWW TO AMBULATE AT BASELINE. SHE ALSO HAS GLASSES THAT SHE LEFT AT HOME. BLE ARE DRY AND COOL, BUT CAP REFILL IS LESS THAN 3 SECONDS. SHE HAS REDNESS/RAWNESS UNDER HER PANNUS, PRIMARILY ON THE LEFT SIDE. PHOTO IN CHART. SHE HAS IV ACCESS IN HER LEFT WRIST AND RIGHT AC, LEFT AC IV REMOVED UPON ARRIVAL TO UNIT. PT RESTING COMFORTABLY IN BED WITH BED IN LOWEST POSITION, CALL LIGHT WITHIN REACH.
[2025-05-20] VITALS (7 sets, daily range): BP systolic 123–148; BP diastolic 56–108
[2025-05-20 04:37] LABS: BASOPHILS ABSOLUTE AUTO 0.02 K/mm3 (0.00-0.23); BASOPHILS PERCENT AUTO 0 % (0-2); EOSINOPHILS ABSOLUTE AUTO 0.12 K/mm3 (0.00-0.68); EOSINOPHILS PERCENT AUTO 2 % (0-6); Hematocrit 48.7 % (33.0-51.0); Hemoglobin 13.7 g/dL (11.5-16.0); IMMATURE GRAN ABSOLUTE AUTO 0.01 K/mm3 (0.00-0.10); IMMATURE GRAN PERCENT AUTO 0 % (0-1); LYMPHOCYTES ABSOLUTE AUTO 1.25 K/mm3 (0.84-5.20); LYMPHOCYTES PERCENT AUTO 20 % (21-46); MONOCYTES ABSOLUTE AUTO 0.65 K/mm3 (0.16-1.47); MONOCYTES PERCENT AUTO 11 % (4-13); Mean Corpuscular HGB Conc 28.1 g/dL (31.5-36.5); Mean Corpuscular Volume 80 fL (80-100); NEUTROPHILS ABSOLUTE AUTO 4.16 K/mm3 (1.96-9.15); NEUTROPHILS PERCENT AUTO 67 % (41-73); NRBC ABSOLUTE 0.08 K/mm3 (0.00-0.02); NRBC Auto 1.3 /100 WBC (0.0-0.2); Platelet Count 145 K/mm3 (150-400); RDW Coefficient Variation 20.6 % (11.7-14.2); RDW Standard Deviation 56.5 fL (35.1-46.3)
[2025-05-20 05:18] LABS: Alanine Aminotransfer (ALT/SGP 24.0 U/L (12-78); Albumin, Blood 3.0 g/dL (3.4-5.0); Albumin/Globulin Ratio 0.8 (0.8-1.8); Anion Gap 8.0 mmol/L (3-11); Aspartate Aminotrans (AST/SGOT 23.0 U/L (12-37); Bilirubin, Total 1.3 mg/dL (0.1-1.0); Blood Urea Nitrogen 12.0 mg/dL (8-24); CO2, Blood 27.0 mmol/L (21-32); Calcium, Blood 8.6 mg/dL (8.5-10.1); Chloride, Blood 109.0 mmol/L (98-108); Creatinine, Blood 1.02 mg/dL (0.40-1.00); Globulin, Blood 4.0 g/dL (2.2-4.0); Glucose, Blood 90.0 mg/dL (70-99); Potassium, Blood 4.3 mmol/L (3.5-5.5); Sodium, Blood 140.0 mmol/L (136-145); Total Protein, Blood 7.0 g/dL (6.4-8.2)
--- NOTE | 2025-05-20 06:03 | NUR ---
SHIFT SUMMARY NO ACUTE CHANGES SINCE PT ARRIVAL TO UNIT. SHE REMAINS ON V60 WITH CPAP SETTINGS AT 12 AND 40% LUNG SOUNDS ARE LESS COARSE THAN UPON ARRIVAL. SHE REMAINS IN A SINUS CYRUS RHYTHM WITH HR 40'S-50'S, ASYMPTOMATIC. SHE HAS REMAINED IN BED, RESTING SINCE ARRIVAL. SEE PREVIOUS NOTE FOR ASSESSMENT INFO.
[2025-05-20] MEDS ORDERED: Polyethylene Glycol 3350 17 gm PO SCH (09:00)
--- NOTE | 2025-05-20 11:13 | NUR ---
am note this rn assumed care at 0700. vital signs stable. tele sinusbrady at 56. spo2 >90% on cpap fio2 50%. patient is alert and oriented x4. neuro is intact. perrla. patient is able to make needs known and uses call light appropriately. patient denies pain, chest pain/pressure or shortness of breath. patient on cpap when this rn assumed care and switched over to 7l nc and spo2 in the high 80s. this rn increase to 15l nc and patient was able to stay low 90s and eat breakfast. after breakfast was finished patient placed back on cpap at fio2 50%. wwith spo2 >90%. patient lung sounds clear and dim upper lobes and dim in lower lobes. see shift assessment for further detials. md coyle and team in to see patient and discussed plan to consult pulmonology and do an echo today. md coyle discussed the importance of taking lasix and how fluid builds up. patient signifcant pedro mike was at bedside for this conversation.
--- NOTE | 2025-05-20 17:01 | NUR ---
PALLIATIVE CARE VISIT: CONSULT RECEIVED FOR PT REQUESTING TO COMPLETE AD/POLST WITH PT. REVIEWED MEDICAL RECORD. SPOKE TO PRIMARY RN PRIOR TO VISIT. PT IS AGREEABLE TO MEETING WITH SIGNIFICANT OTHER ABDULLAHI TO COMPLETE DOCUMENTS. POLST:EDUCATED ON CPR VS DNR RISKS AND BENEFITS. PT CHOSE CPR, FULL MEASURES. POLST COMPLETED AND AWAITING MD SIGNATURE. AD: ASSISTED PT WITH COMPLETING AD BY EXPLAINING EACH SECTION. PT CHOSE ABDULLAHI TO BE HER HEALTHCARE GROCERY SPECIALIST. THEY PREFER TO HAVE DOCUMENT NOTARIZED. THEY WILL TAKE TO NOTARY AFTER DISCHARGE UNLESS PT IS STILL HERE ON FRIDAY, THEN WILL REQUEST IN HOUSE NOTARY. DISCUSSED BARRIERS TO TAKING LASIX. PT STATED SHE IS INCONTINENT AND DID NOT KKNOW IF SHE COULD TAKE HER INCONTINENT MEDICATION WITH LASIX AND SHE AVOIDED ASKING BECAUSE SHE DIDN'T UNDERSTAND HOW SERIOUS HER ILLNESS WAS. SHE STATES SHE WILL TAKE HER MEDICATIONS ORDERED NOW. SHE IS ON WELLBUTRIN NOW, WHICH SHE STATES PRIOR TO TAKING SHE DIDN'T CARE ABOUT HER LIFE, IF SHE LIVED OR , BUT NOW AFTER BEING ON WELLBUTRIN SHE DOES CARE AND WANTS TO GET BETTER. PARTNER ABDULLAHI WAS PRESENT AND WAS SUPPORTIVE IN HER DECISIONS. PROVIDED PAMPHLETS UNDERSTANDING HEART FAILURE, PATIENT INSTRUCTIONS CHF, AND JESSIE PALLIATIVE.
[2025-05-21] VITALS (7 sets, daily range): BP systolic 116–154; BP diastolic 58–94
[2025-05-21 05:04] LABS: BASOPHILS ABSOLUTE AUTO 0.03 K/mm3 (0.00-0.23); BASOPHILS PERCENT AUTO 1 % (0-2); EOSINOPHILS ABSOLUTE AUTO 0.12 K/mm3 (0.00-0.68); EOSINOPHILS PERCENT AUTO 2 % (0-6); Hematocrit 52.1 % (33.0-51.0); Hemoglobin 14.2 g/dL (11.5-16.0); IMMATURE GRAN ABSOLUTE AUTO 0.03 K/mm3 (0.00-0.10); IMMATURE GRAN PERCENT AUTO 1 % (0-1); LYMPHOCYTES ABSOLUTE AUTO 1.47 K/mm3 (0.84-5.20); LYMPHOCYTES PERCENT AUTO 29 % (21-46); MONOCYTES ABSOLUTE AUTO 0.60 K/mm3 (0.16-1.47); MONOCYTES PERCENT AUTO 12 % (4-13); Mean Corpuscular HGB Conc 27.3 g/dL (31.5-36.5); Mean Corpuscular Volume 82 fL (80-100); NEUTROPHILS ABSOLUTE AUTO 2.86 K/mm3 (1.96-9.15); NEUTROPHILS PERCENT AUTO 56 % (41-73); NRBC ABSOLUTE 0.02 K/mm3 (0.00-0.02); NRBC Auto 0.4 /100 WBC (0.0-0.2); Platelet Count 138 K/mm3 (150-400); RDW Coefficient Variation 20.9 % (11.7-14.2); RDW Standard Deviation 57.6 fL (35.1-46.3)
--- NOTE | 2025-05-21 05:12 | NUR ---
SHIFT SUMMARY PT A&O X4, CALM, COOPERATIVE TO CARE. PT IN SINUS CYRUS, HR IN THE 50'S. SHE DENIES ANY CP/PRESSURE, NUMB/TINGLING. SBP STABLE. PT ON 15L VIA OXYMASK WHILE AWAKE, 3L IS BL FOR PT. PT HAS CPAP AT BEDSIDE FOR SLEEP, 50% FIO2. SpO2 >92%. PT HAS PUREWICK IN PLACE, DIURESING WELL. NO ACUTE CHANGES T/O NIGHT. WILL MONITOR PT AND REPORT TO ONCOMING RN.
[2025-05-21 05:39] LABS: Alanine Aminotransfer (ALT/SGP 23.0 U/L (12-78); Albumin, Blood 3.0 g/dL (3.4-5.0); Albumin/Globulin Ratio 0.7 (0.8-1.8); Anion Gap 6.0 mmol/L (3-11); Aspartate Aminotrans (AST/SGOT 19.0 U/L (12-37); Bilirubin, Total 1.1 mg/dL (0.1-1.0); Blood Urea Nitrogen 11.0 mg/dL (8-24); CO2, Blood 28.0 mmol/L (21-32); Calcium, Blood 9.0 mg/dL (8.5-10.1); Chloride, Blood 108.0 mmol/L (98-108); Creatinine, Blood 0.89 mg/dL (0.40-1.00); Globulin, Blood 4.3 g/dL (2.2-4.0); Glucose, Blood 93.0 mg/dL (70-99); Magnesium, Blood 2.4 mg/dL (1.6-2.4); Phosphorus, Blood 3.9 mg/dL (2.5-4.9); Potassium, Blood 4.3 mmol/L (3.5-5.5); Sodium, Blood 138.0 mmol/L (136-145); Thyroid Stimulating Hormone 1.1 uIU/mL (0.360-4.800); Total Protein, Blood 7.3 g/dL (6.4-8.2)
[2025-05-21] MEDS ORDERED: Ipratropium/Albuterol SulF 2.5-0.5MG/3 ML Amp INH SCH (11:55)
[2025-05-21] MEDS ORDERED: Albuterol HFA200 ACT/6.7 GM INH INH PRN (12:00)
--- NOTE | 2025-05-21 19:31 | NUR ---
SHIFT SUMMARY A&Ox4, CALLS AND COMMUNICATES NEEDS APPROPRIATELY. BP STABLE, SINUS CYRUS 50's, DENIES CP/PRESSURE. 15L VIA NC AT START OF SHIFT, PT ON 60L 75% FiO2 AT THIS TIME WITH SpO2> 90%, REPORTS INTERMITTENT SOB. NO C/O PAIN. Q2 TURNS PROVIDED. PURWICK IN PLACE, DIURESING WELL. DRY COUGH. AT BEDSIDE. NO OTHE EVENTS, WILL REPORT TO ONCOMING RN.
[2025-05-22 03:33] VITALS: BP 153/75
--- NOTE | 2025-05-22 04:34 | NUR ---
SHIFT SUMMARY: PATIENT IS A&OX4. TELE SHOWS SINUS CYRUS @ 50'S BPM. PATIENT IS CURRENTLY ON AIRVO NC AT 60L OXYGEN AND 93% FIO2 WITH SPO2 >90%. WHEN PATIENT WOULD FALL ASLEEP, HER CPAP WOULD BE PLACED WITH 50% OXYGEN BLEED IN WITH ALSO >90% SPO2. PATIENT DENIES SHORTNESS OF BREATH AT THIS TIME. PATIENT IS A 2P ASSIST WITH FWW AND GAIT BELT WHEN USING BSC - PATIENT ATTEMPTED TO HAVE A BM BUT NO BM STILL. PUREWICK IN PLACE WITH DARK YELLOW URINE OUTPUT IN CANESTER AND IS ON LOW CONTINUOUS SUCTION. PATIENT HAS DENIED PAIN THROUGHOUT SHIFT. PATIENT CALLS APPROPRIATELY AND IS ABLE TO MAKE HER NEEDS KNOWN. PATIENT IS CURRENTLY LAYING IN BED WITH CALL LIGHT IN REACH. TO BE ENDORSED TO ONCOMING NURSE.
[2025-05-22 04:38] LABS: BASOPHILS ABSOLUTE AUTO 0.01 K/mm3 (0.00-0.23); BASOPHILS PERCENT AUTO 0 % (0-2); EOSINOPHILS ABSOLUTE AUTO 0.00 K/mm3 (0.00-0.68); EOSINOPHILS PERCENT AUTO 0 % (0-6); Hematocrit 53.3 % (33.0-51.0); Hemoglobin 14.6 g/dL (11.5-16.0); IMMATURE GRAN ABSOLUTE AUTO 0.01 K/mm3 (0.00-0.10); IMMATURE GRAN PERCENT AUTO 0 % (0-1); LYMPHOCYTES ABSOLUTE AUTO 1.09 K/mm3 (0.84-5.20); LYMPHOCYTES PERCENT AUTO 21 % (21-46); MONOCYTES ABSOLUTE AUTO 0.21 K/mm3 (0.16-1.47); MONOCYTES PERCENT AUTO 4 % (4-13); Mean Corpuscular HGB Conc 27.4 g/dL (31.5-36.5); Mean Corpuscular Volume 81 fL (80-100); NEUTROPHILS ABSOLUTE AUTO 3.97 K/mm3 (1.96-9.15); NEUTROPHILS PERCENT AUTO 75 % (41-73); NRBC ABSOLUTE 0.00 K/mm3 (0.00-0.02); NRBC Auto 0.0 /100 WBC (0.0-0.2); Platelet Count 150 K/mm3 (150-400); RDW Coefficient Variation 20.6 % (11.7-14.2); RDW Standard Deviation 55.8 fL (35.1-46.3)
[2025-05-22 05:09] LABS: Alanine Aminotransfer (ALT/SGP 19.0 U/L (12-78); Albumin, Blood 3.0 g/dL (3.4-5.0); Albumin/Globulin Ratio 0.7 (0.8-1.8); Anion Gap 7.0 mmol/L (3-11); Aspartate Aminotrans (AST/SGOT 20.0 U/L (12-37); Bilirubin, Total 1.0 mg/dL (0.1-1.0); Blood Urea Nitrogen 14.0 mg/dL (8-24); CO2, Blood 29.0 mmol/L (21-32); Calcium, Blood 9.5 mg/dL (8.5-10.1); Chloride, Blood 106.0 mmol/L (98-108); Creatinine, Blood 0.89 mg/dL (0.40-1.00); Globulin, Blood 4.5 g/dL (2.2-4.0); Glucose, Blood 158.0 mg/dL (70-99); Magnesium, Blood 2.4 mg/dL (1.6-2.4); Phosphorus, Blood 3.4 mg/dL (2.5-4.9); Potassium, Blood 4.3 mmol/L (3.5-5.5); Sodium, Blood 138.0 mmol/L (136-145); Total Protein, Blood 7.5 g/dL (6.4-8.2)
[2025-05-22 08:31] VITALS: BP 135/68
[2025-05-22 09:55] LABS: Influenza A/2009-H1 Not Detected (NOT DETECT); SARS-Cov-2 (COVID-19), BioFire Not Detected (NOT DETECT)
[2025-05-22 11:40] VITALS: BP 150/72
[2025-05-22 15:56] VITALS: BP 142/70
--- NOTE | 2025-05-22 17:41 | NUR ---
SHIFT SUMMARY A&Ox4, CALLS AND COMMUNICATES NEEDS APPROPRIATELY. BP STABLE, SINUS CYRUS 50's, DENIES CP/PRESSURE. 60L 75% FiO2 WITH SpO2> 90%, REPORTS INTERMITTENT SOB, CPAP AT BEDSIDE. C/O INTERMITTENT ABD CRAMPING AND FEELING CONSITPATED, BOWEL CARE PROVIDED. Q2 TURNS PROVIDED. PURWICK IN PLACE, DIURESING WELL. 1 ASSIST TO BSC. DRY COUGH. AT BEDSIDE. NO OTHE EVENTS, WILL REPORT TO ONCOMING RN.
[2025-05-22 20:26] VITALS: BP 123/111
[2025-05-22 22:54] VITALS: BP 153/75
[2025-05-23 04:13] VITALS: BP 168/75
[2025-05-23 04:28] LABS: BASOPHILS ABSOLUTE AUTO 0.01 K/mm3 (0.00-0.23); BASOPHILS PERCENT AUTO 0 % (0-2); EOSINOPHILS ABSOLUTE AUTO 0.00 K/mm3 (0.00-0.68); EOSINOPHILS PERCENT AUTO 0 % (0-6); Hematocrit 50.7 % (33.0-51.0); Hemoglobin 14.3 g/dL (11.5-16.0); IMMATURE GRAN ABSOLUTE AUTO 0.01 K/mm3 (0.00-0.10); IMMATURE GRAN PERCENT AUTO 0 % (0-1); LYMPHOCYTES ABSOLUTE AUTO 1.24 K/mm3 (0.84-5.20); LYMPHOCYTES PERCENT AUTO 21 % (21-46); MONOCYTES ABSOLUTE AUTO 0.30 K/mm3 (0.16-1.47); MONOCYTES PERCENT AUTO 5 % (4-13); Mean Corpuscular HGB Conc 28.2 g/dL (31.5-36.5); Mean Corpuscular Volume 80 fL (80-100); NEUTROPHILS ABSOLUTE AUTO 4.37 K/mm3 (1.96-9.15); NEUTROPHILS PERCENT AUTO 74 % (41-73); NRBC ABSOLUTE 0.00 K/mm3 (0.00-0.02); NRBC Auto 0.0 /100 WBC (0.0-0.2); Platelet Count 174 K/mm3 (150-400); RDW Coefficient Variation 20.0 % (11.7-14.2); RDW Standard Deviation 55.8 fL (35.1-46.3)
[2025-05-23 04:55] LABS: Alanine Aminotransfer (ALT/SGP 19.0 U/L (12-78); Albumin, Blood 3.2 g/dL (3.4-5.0); Albumin/Globulin Ratio 0.7 (0.8-1.8); Anion Gap 5.0 mmol/L (3-11); Aspartate Aminotrans (AST/SGOT 16.0 U/L (12-37); Bilirubin, Total 0.8 mg/dL (0.1-1.0); Blood Urea Nitrogen 18.0 mg/dL (8-24); CO2, Blood 32.0 mmol/L (21-32); Calcium, Blood 9.7 mg/dL (8.5-10.1); Chloride, Blood 108.0 mmol/L (98-108); Creatinine, Blood 0.84 mg/dL (0.40-1.00); Globulin, Blood 4.4 g/dL (2.2-4.0); Glucose, Blood 133.0 mg/dL (70-99); Magnesium, Blood 2.5 mg/dL (1.6-2.4); Phosphorus, Blood 3.7 mg/dL (2.5-4.9); Potassium, Blood 4.8 mmol/L (3.5-5.5); Sodium, Blood 140.0 mmol/L (136-145); Total Protein, Blood 7.6 g/dL (6.4-8.2)
--- NOTE | 2025-05-23 06:16 | NUR ---
SHIFT SUMMARY PT IS A&O X4, ABLE TO MAKE NEEDS KNOWN, MOVING ALL EXTREMITIES WITH PURPOSE, OBEYS COMMANDS, CALLS APPROPRIATELY. CONTINUOUS SPO2, SPO2 GREATER THAN 88% ON AIRVO 75% FIO2 WHILE AWAKE AND CPAP AT NIGHT/ PT OCCASIONALLY DIPPING TO LOW MID 80 S% WHEN TAKING AIRVO OUT TO BLOW NOSE, LUNGS SOUND CLEAR AND DIMINISHED T/O , PT DENIES SOB T/O THIS SHIFT. CONTINUOUS TELE MONITORING, SINUS 50-60 S, PULSES PRESENT T/O, BP STABLE WITH MAP GREATER THAN 65. BOWEL TONES PRESENT IN ALL 4Q, PT DENIES FEELINGS OF NAUSEA OR CONSTIPATION OR PAIN. PUREWICK IN PLACE CONNECTED TO LOW CONTINUOUS SUCTION, URINE YELLOW IN COLOR. BED LOWEST POSITION, CALL LIGHT IN REACH, AWAITING TO GIVE REPORT TO ONCOMING RN.
[2025-05-23 08:08] VITALS: BP 133/58
[2025-05-23 12:04] VITALS: BP 144/64
[2025-05-23 15:16] VITALS: BP 154/66
--- NOTE | 2025-05-23 15:46 | NUR ---
PALLIATIVE CARE VISIT: 1200 CHECKED ON PT TODAY. SHE IS SITTING UP AT BEDSIDE EATING LUNCH. NO RR DISTRESS OBSERVED. PT ON AIRVO. PT DENIES NEEDS. CHECKED TO SEE IF SHE WOULD LIKE ADVANCE DIRECTIVE NOTARIZED. SHE STATED HER S/O ABDULLAHI TOOK IT HOME WITH HIM. THEY PLAN TO GET NOTARIZED AT THERE BANK. DENIES ANY FURTHER NEEDS.
--- NOTE | 2025-05-23 18:33 | NUR ---
SHIFT SUMMARY PT IS A&O X 4, COOPERATIVE WITH CARE AND ABLE TO EXPRESS NEEDS. SHE HAS BEEN A 2 AST. TO STAND/PIVOT TO CHAIR OR BSC IN ROOM, WELL FOR REPOSITIONING IN BED NEEDED. PT STARTED THE SHIFT ON 60L AIRVO W/ 87% FIO2 AND IS CURRENTLY ON 53L AIRVO W/ 86% FIO2. SHE DENIES SOB. HR IS SR/SB 50s-60s AND PT DENIES CHEST PAIN. PT IS CURRENTLY USING A PUREWICK WITH LOW CONTINUOUS SUCTION. SHE REPORTED THAT HER LAST BM WAS FRIDAY AND ATTEMPTED TO GO ON THE BSC TODAY WITH NO SUCCESS. MEDICATING WITH STOOL SOFTENERS PER [facility]. SLIGHT REDNESS NOTED AT LEFT GROIN AREA AND IN LEFT KNEE DITCH, POWDER APPLIED TO GROIN, BUT PT DECLINED POWDER AT KNEE. HAS BEEN AT BEDSIDE MULTIPLE TIMES T/O SHIFT AND UPDATED ON CARE. PT WORKED WITH PHYSICAL THERAPY THIS SHIFT. CURRENTLY IN CHAIR WITH LEGS ELEVATED AND CALL LIGHT IN REACH. SEE NOTES FOR UPDATES.
[2025-05-23 20:21] VITALS: BP 154/66
[2025-05-23 22:40] LABS: TOXOPLASMA GONDII AB, IGM <3.0 AU/mL (<=7.9)
[2025-05-23 23:10] VITALS: BP 153/81
[2025-05-24] VITALS (16 sets, daily range): BP systolic 69–178; BP diastolic 46–94
[2025-05-24 03:54] LABS: BASOPHILS ABSOLUTE AUTO 0.01 K/mm3 (0.00-0.23); BASOPHILS PERCENT AUTO 0 % (0-2); EOSINOPHILS ABSOLUTE AUTO 0.00 K/mm3 (0.00-0.68); EOSINOPHILS PERCENT AUTO 0 % (0-6); Hematocrit 52.1 % (33.0-51.0); Hemoglobin 14.5 g/dL (11.5-16.0); IMMATURE GRAN ABSOLUTE AUTO 0.02 K/mm3 (0.00-0.10); IMMATURE GRAN PERCENT AUTO 0 % (0-1); LYMPHOCYTES ABSOLUTE AUTO 1.15 K/mm3 (0.84-5.20); LYMPHOCYTES PERCENT AUTO 19 % (21-46); MONOCYTES ABSOLUTE AUTO 0.28 K/mm3 (0.16-1.47); MONOCYTES PERCENT AUTO 5 % (4-13); Mean Corpuscular HGB Conc 27.8 g/dL (31.5-36.5); Mean Corpuscular Volume 80 fL (80-100); NEUTROPHILS ABSOLUTE AUTO 4.48 K/mm3 (1.96-9.15); NEUTROPHILS PERCENT AUTO 75 % (41-73); NRBC ABSOLUTE 0.00 K/mm3 (0.00-0.02); NRBC Auto 0.0 /100 WBC (0.0-0.2); Platelet Count 176 K/mm3 (150-400); RDW Coefficient Variation 20.3 % (11.7-14.2); RDW Standard Deviation 55.8 fL (35.1-46.3)
[2025-05-24 04:30] LABS: Alanine Aminotransfer (ALT/SGP 21.0 U/L (12-78); Albumin, Blood 3.4 g/dL (3.4-5.0); Albumin/Globulin Ratio 0.8 (0.8-1.8); Anion Gap 7.0 mmol/L (3-11); Aspartate Aminotrans (AST/SGOT 12.0 U/L (12-37); Bilirubin, Total 0.8 mg/dL (0.1-1.0); Blood Urea Nitrogen 25.0 mg/dL (8-24); CO2, Blood 31.0 mmol/L (21-32); Calcium, Blood 9.8 mg/dL (8.5-10.1); Chloride, Blood 106.0 mmol/L (98-108); Creatinine, Blood 0.81 mg/dL (0.40-1.00); Globulin, Blood 4.5 g/dL (2.2-4.0); Glucose, Blood 127.0 mg/dL (70-99); Magnesium, Blood 2.7 mg/dL (1.6-2.4); Phosphorus, Blood 3.2 mg/dL (2.5-4.9); Potassium, Blood 4.8 mmol/L (3.5-5.5); Sodium, Blood 139.0 mmol/L (136-145); Total Protein, Blood 7.9 g/dL (6.4-8.2)
[2025-05-24 04:33] LABS: ANTI-NUCLEAR AB ANA,IGG ELISA None Detected (None Detected)
[2025-05-24 04:36] LABS: CYCLIC CITRULLINATED PEP,IGG/A 4 Units (0-19)
--- NOTE | 2025-05-24 06:21 | NUR ---
SHIFT SUMMARY PT IS A&O X4, ABLE TO MAKE NEEDS KNOWN, MOVING ALL EXTREMITIES WITH PURPOSE, OBEYS COMMANDS, CALLS APPROPRIATELY. CONTINUOUS SPO2, SPO2 GREATER THAN 88% ON AIRVO 75% FIO2 WHILE AWAKE AND CPAP AT NIGHT WITH 60% FIO2/ PT OCCASIONALLY DIPPING TO LOW MID 80 S% WHEN TAKING AIRVO OUT TO BLOW NOSE, LUNGS SOUND CLEAR AND DIMINISHED T/O , PT DENIES SOB T/O THIS SHIFT. CONTINUOUS TELE MONITORING, SINUS 50-60 S, PULSES PRESENT T/O, BP STABLE WITH MAP GREATER THAN 65. BOWEL TONES PRESENT IN ALL 4Q, PT DENIES FEELINGS OF NAUSEA OR CONSTIPATION OR PAIN. PUREWICK IN PLACE CONNECTED TO LOW CONTINUOUS SUCTION, URINE YELLOW IN COLOR. BED LOWEST POSITION, CALL LIGHT IN REACH, AWAITING TO GIVE REPORT TO ONCOMING RN.
[2025-05-24 13:16] LABS: GBM, IGG MULTIPLEX BEAD ASSAY 0 AU/mL (0-19)
[2025-05-24] MEDS ORDERED: Metoprolol Tartrate 1 MG/ML 5 ML VIAL IV PRN (18:10)
--- NOTE | 2025-05-24 18:37 | NUR ---
SHIFT SUMMARY ASSUMED CARE OF PATIENT AT 0700 AFTER BEDSIDE SHIFT REPORT. PATIENT WAS A&O X 4. AIRBO ON AND SET PER RT. O2 SATS >90. PATIENT HR IN 50-60S T/O SHIFT. PATENT HR CONVERTED TO AFIB AT 1748 AND PROVIDER NOTIFIED PATIENT MEDICATED PER [facility]. MEDICATION INITITIALLY LOWERD BP, PROVIDER NOTIFIED. BP IMPROVED. SBP CURRENTLY STABLE. PURE WICK IS CONNECTED AND DRAINING TO GRAVITY. SHE IS A ONE PERSON ASSIST TO COMMODE. HER RIGHT POWERGLIDE AND LEFT PIV FLUSHES. RESTING COMFORTABLLY IN BED IN LOWEST POSITION, WITH CALL LIGHT IN REACH.
[2025-05-25 03:25] VITALS: BP 146/76
[2025-05-25 03:41] LABS: BASOPHILS ABSOLUTE AUTO 0.00 K/mm3 (0.00-0.23); BASOPHILS PERCENT AUTO 0 % (0-2); EOSINOPHILS ABSOLUTE AUTO 0.00 K/mm3 (0.00-0.68); EOSINOPHILS PERCENT AUTO 0 % (0-6); Hematocrit 53.8 % (33.0-51.0); Hemoglobin 15.2 g/dL (11.5-16.0); IMMATURE GRAN ABSOLUTE AUTO 0.01 K/mm3 (0.00-0.10); IMMATURE GRAN PERCENT AUTO 0 % (0-1); LYMPHOCYTES ABSOLUTE AUTO 1.37 K/mm3 (0.84-5.20); LYMPHOCYTES PERCENT AUTO 21 % (21-46); MONOCYTES ABSOLUTE AUTO 0.27 K/mm3 (0.16-1.47); MONOCYTES PERCENT AUTO 4 % (4-13); Mean Corpuscular HGB Conc 28.3 g/dL (31.5-36.5); Mean Corpuscular Volume 80 fL (80-100); NEUTROPHILS ABSOLUTE AUTO 4.83 K/mm3 (1.96-9.15); NEUTROPHILS PERCENT AUTO 75 % (41-73); NRBC ABSOLUTE 0.00 K/mm3 (0.00-0.02); NRBC Auto 0.0 /100 WBC (0.0-0.2); Platelet Count 185 K/mm3 (150-400); RDW Coefficient Variation 20.6 % (11.7-14.2); RDW Standard Deviation 56.0 fL (35.1-46.3)
[2025-05-25 04:01] LABS: Alanine Aminotransfer (ALT/SGP 24.0 U/L (12-78); Albumin, Blood 3.4 g/dL (3.4-5.0); Albumin/Globulin Ratio 0.8 (0.8-1.8); Anion Gap 6.0 mmol/L (3-11); Aspartate Aminotrans (AST/SGOT 14.0 U/L (12-37); Bilirubin, Total 0.8 mg/dL (0.1-1.0); Blood Urea Nitrogen 28.0 mg/dL (8-24); CO2, Blood 31.0 mmol/L (21-32); Calcium, Blood 10.1 mg/dL (8.5-10.1); Chloride, Blood 107.0 mmol/L (98-108); Creatinine, Blood 0.87 mg/dL (0.40-1.00); Globulin, Blood 4.2 g/dL (2.2-4.0); Glucose, Blood 138.0 mg/dL (70-99); Magnesium, Blood 2.8 mg/dL (1.6-2.4); Phosphorus, Blood 3.8 mg/dL (2.5-4.9); Potassium, Blood 4.7 mmol/L (3.5-5.5); Sodium, Blood 139.0 mmol/L (136-145); Total Protein, Blood 7.6 g/dL (6.4-8.2)
--- NOTE | 2025-05-25 06:33 | NUR ---
SHIFT SUMMARY PT IS A&O X4, ABLE TO MAKE NEEDS KNOWN, MOVING ALL EXTREMITIES WITH PURPOSE, OBEYS COMMANDS, CALLS APPROPRIATELY, REPORTS BEING MORE TIRED THIS SHIFT. CONTINUOUS SPO2, SPO2 GREATER THAN 88% ON AIRVO 71% FIO2 WHILE AWAKE AND CPAP AT NIGHT WITH 60% FIO2, LUNGS SOUND CLEAR AND DIMINISHED T/O , PT DENIES SOB T/O THIS SHIFT. CONTINUOUS TELE MONITORING, SINUS 40-60 S/ OCCASIONALLY DROPPING TO HIGH 30 S WHEN SLEEPING BUT NONSUSTAINING/ PT CONVERTED TO AFIB @APPORX 1600 AND @ APPROX 1954 BACK TO SINUS RHYTHM, PULSES PRESENT T/O, BP STABLE WITH MAP GREATER THAN 65. BOWEL TONES PRESENT IN ALL 4Q, PT DENIES FEELINGS OF NAUSEA OR CONSTIPATION OR PAIN. PUREWICK IN PLACE CONNECTED TO LOW CONTINUOUS SUCTION, URINE YELLOW IN COLOR. BED LOWEST POSITION, CALL LIGHT IN REACH, AWAITING TO GIVE REPORT TO ONCOMING RN.
[2025-05-25 08:07] VITALS: BP 139/75
[2025-05-25 13:01] VITALS: BP 146/65
[2025-05-25 15:33] VITALS: BP 132/70
--- NOTE | 2025-05-25 15:47 | NUR ---
SHIFT SUMMRY: PT A&OX4. FOLLOWS COMMANDS AND MAKES NEEDS KNOWN TO STAFF. PT WAS ABLE TO GET UP THE THE RECLINER AND BSC TODAY WITH SBA AND WALKER. PHYSICAL THERAPY AND OT WORKED WITH PT TODAY. PT REMAINED FREE OF ANY CP, PRESSURE, TIGHTNESS OR SOB. HR WAS IN SINUS CYRUS ALL DAY IN THE 40-50'S. PT NOT SYMPTOMATIC. BLOOD PRESSURE STABLE. REMAINED AT BEDSIDE MOST OF THE DAY. PT HAS BEEN ON AIRVO MOST OF THE DAY AT 50L 75%FIO2, WITH NO CHANGES. NO SIGNIFICANT EVENTS HAPPENED DURING THIS SHIFT. WILL CONTINUE TO CARE FOR PT TILL END OF SHIFT.
[2025-05-25] MEDS ORDERED: CefTRIAXone Sodium 1,000 MG in NS 100 ML IV SCH (17:00)
[2025-05-25 20:00] VITALS: BP 145/67
[2025-05-26] VITALS (7 sets, daily range): BP systolic 117–154; BP diastolic 55–85
--- NOTE | 2025-05-26 04:29 | NUR ---
SHIFT SUMMARY PT REMAINS A&OX4, PUPROSEFUL, PERRLS, FOLLOWS, APPROPRIATE. NO COMPLAINTS. TRANSITOINED FROM AIRVO TO CPAP FOR SLEEP AROUND 0100 WITHOUT ISSUE. PT BRADYCARDIC TO THE MID 50S WHILE AWAKE, MID-HIGH 40S WHILE SLEEPING. ASYMPTOMATIC IN BOTH CASES. BP MEDS TAKEN. NO OVERNIGHT ISSUES.
[2025-05-26 05:07] LABS: BASOPHILS ABSOLUTE AUTO 0.01 K/mm3 (0.00-0.23); BASOPHILS PERCENT AUTO 0 % (0-2); EOSINOPHILS ABSOLUTE AUTO 0.00 K/mm3 (0.00-0.68); EOSINOPHILS PERCENT AUTO 0 % (0-6); Hematocrit 52.7 % (33.0-51.0); Hemoglobin 14.8 g/dL (11.5-16.0); IMMATURE GRAN ABSOLUTE AUTO 0.01 K/mm3 (0.00-0.10); IMMATURE GRAN PERCENT AUTO 0 % (0-1); LYMPHOCYTES ABSOLUTE AUTO 1.32 K/mm3 (0.84-5.20); LYMPHOCYTES PERCENT AUTO 22 % (21-46); MONOCYTES ABSOLUTE AUTO 0.34 K/mm3 (0.16-1.47); MONOCYTES PERCENT AUTO 6 % (4-13); Mean Corpuscular HGB Conc 28.1 g/dL (31.5-36.5); Mean Corpuscular Volume 80 fL (80-100); NEUTROPHILS ABSOLUTE AUTO 4.40 K/mm3 (1.96-9.15); NEUTROPHILS PERCENT AUTO 72 % (41-73); NRBC ABSOLUTE 0.00 K/mm3 (0.00-0.02); NRBC Auto 0.0 /100 WBC (0.0-0.2); Platelet Count 177 K/mm3 (150-400); RDW Coefficient Variation 20.4 % (11.7-14.2); RDW Standard Deviation 56.2 fL (35.1-46.3)
[2025-05-26 06:25] LABS: Alanine Aminotransfer (ALT/SGP 20.0 U/L (12-78); Albumin, Blood 3.4 g/dL (3.4-5.0); Albumin/Globulin Ratio 0.8 (0.8-1.8); Anion Gap 8.0 mmol/L (3-11); Aspartate Aminotrans (AST/SGOT 12.0 U/L (12-37); Bilirubin, Total 0.9 mg/dL (0.1-1.0); Blood Urea Nitrogen 30.0 mg/dL (8-24); CO2, Blood 28.0 mmol/L (21-32); Calcium, Blood 10.2 mg/dL (8.5-10.1); Chloride, Blood 107.0 mmol/L (98-108); Creatinine, Blood 0.83 mg/dL (0.40-1.00); Globulin, Blood 4.1 g/dL (2.2-4.0); Glucose, Blood 121.0 mg/dL (70-99); Magnesium, Blood 2.8 mg/dL (1.6-2.4); Phosphorus, Blood 3.6 mg/dL (2.5-4.9); Potassium, Blood 4.4 mmol/L (3.5-5.5); Sodium, Blood 139.0 mmol/L (136-145); Total Protein, Blood 7.5 g/dL (6.4-8.2)
[2025-05-26 08:17] LABS: TOXOPLASMA GONDII AB, IGG <3.0AO
--- NOTE | 2025-05-26 17:38 | NUR ---
SHIFT SUMMARY PATIENT IS ALERT AND ORIENTED, ABLE TO FOLLOW COMMANDS AND MAKE NEEDS KNOWN. VSS, TELE IN PLACE, SINUS CYRUS 50'S. SPO2 >90% ON AIRVO 40L AND 54% FIO2, PATIENT SHORT OF BREATH UPON EXERTION. PATIENT DENIES PRESENCE OF CHEST PAIN, PRESSURE, OR DIFFICULTY BREATHING. PATIENT DENIES PRESENCE OF N/V/D. PUREWICK IN PLACE AT START OF SHIFT, PUREWICK REMOVED AND PATIENT AMBULATING WITH A FWW TO BEDSIDE COMMODE, RED TINGED URINE NOTED THIS SHIFT. PATIENT REPORTS FIBROID TUMORS THAT CAUSE INTERMITTENT BLEEDING. PATIENT IS UP IN THE CHAIR, CALL LIGHT WITHIN REACH.
--- NOTE | 2025-05-26 19:35 | NUR ---
ASSUMPTION OF CARE ASSUMED PT'S CARE AT 1900,PT SITTING UP IN CHAIR,ON AIRVO.VISITOR AT BEDSIDE.BEDSIDE REPORT COMPLETED,PT DENIES PAIN,DENIES NUMBNESS/TINGLING,DENIES NAUSEA,DENIES SOB,DENIES NEEDS AT THIS TIME.PLAN OF CARE REVIEWED.CALL LIGHT AND PT'S ITEMS WITHIN REACH.MONITORING ONGOING PER CAREPLAN.
[2025-05-27 05:05] LABS: BASOPHILS ABSOLUTE AUTO 0.00 K/mm3 (0.00-0.23); BASOPHILS PERCENT AUTO 0 % (0-2); EOSINOPHILS ABSOLUTE AUTO 0.00 K/mm3 (0.00-0.68); EOSINOPHILS PERCENT AUTO 0 % (0-6); Hematocrit 52.8 % (33.0-51.0); Hemoglobin 14.7 g/dL (11.5-16.0); IMMATURE GRAN ABSOLUTE AUTO 0.02 K/mm3 (0.00-0.10); IMMATURE GRAN PERCENT AUTO 0 % (0-1); LYMPHOCYTES ABSOLUTE AUTO 1.22 K/mm3 (0.84-5.20); LYMPHOCYTES PERCENT AUTO 19 % (21-46); MONOCYTES ABSOLUTE AUTO 0.36 K/mm3 (0.16-1.47); MONOCYTES PERCENT AUTO 6 % (4-13); Mean Corpuscular HGB Conc 27.8 g/dL (31.5-36.5); Mean Corpuscular Volume 81 fL (80-100); NEUTROPHILS ABSOLUTE AUTO 4.87 K/mm3 (1.96-9.15); NEUTROPHILS PERCENT AUTO 75 % (41-73); NRBC ABSOLUTE 0.00 K/mm3 (0.00-0.02); NRBC Auto 0.0 /100 WBC (0.0-0.2); Platelet Count 172 K/mm3 (150-400); RDW Coefficient Variation 20.6 % (11.7-14.2); RDW Standard Deviation 56.0 fL (35.1-46.3)
[2025-05-27 05:06] VITALS: BP 142/83
[2025-05-27 05:33] LABS: Alanine Aminotransfer (ALT/SGP 24.0 U/L (12-78); Albumin, Blood 3.2 g/dL (3.4-5.0); Albumin/Globulin Ratio 0.8 (0.8-1.8); Anion Gap 6.0 mmol/L (3-11); Aspartate Aminotrans (AST/SGOT 12.0 U/L (12-37); Bilirubin, Total 0.8 mg/dL (0.1-1.0); Blood Urea Nitrogen 29.0 mg/dL (8-24); CO2, Blood 28.0 mmol/L (21-32); Calcium, Blood 9.5 mg/dL (8.5-10.1); Chloride, Blood 109.0 mmol/L (98-108); Creatinine, Blood 0.77 mg/dL (0.40-1.00); Globulin, Blood 4.1 g/dL (2.2-4.0); Glucose, Blood 125.0 mg/dL (70-99); Magnesium, Blood 2.5 mg/dL (1.6-2.4); Phosphorus, Blood 3.1 mg/dL (2.5-4.9); Potassium, Blood 4.1 mmol/L (3.5-5.5); Sodium, Blood 139.0 mmol/L (136-145); Total Protein, Blood 7.3 g/dL (6.4-8.2)
--- NOTE | 2025-05-27 07:26 | NUR ---
PT MONITORED DURING THE SHIFT,NO ACUTE EVENTS NOTED.PT USED THE AIRVO AND SWITCHED TO CPAP AT 0100.MAINTAINED OXYGEN SATURATION >92%.PT DENIES PAIN,DENIES SOB,DENIES NEEDS THIS MORNING.MONITORING ONGOING PER CAREPLAN.CALL LIGHT AND PT'S ITEMS WITHIN REACH.
[2025-05-27 11:35] VITALS: BP 126/73
[2025-05-27 16:05] VITALS: BP 126/69
--- NOTE | 2025-05-27 16:39 | NUR ---
SHIFT NOTE: PT A/OX4 ABLE TO MAKE HER NEEDS KNOWN. SHE HAS BEEN UP IN THE CHAIR T/O DAY. HER O2 HAS BEEN TITRATED DOWN TO 3L NC (HER BASELINE). SHE HAS BEEN EDUCATED ON NEED TO UTILIZE THE INCENTIVE SPIROMETER. PT DEMONSTRATED UNDERSTANDING OF USE. SHE REMAINS IN SINUS CYRUS IN THE 50S. NO ACUTE EVENTS ON TELE T/O DAY. CALL LIGHT IN REACH, AT BEDSIDE AND UPDATED ON PLAN OF CARE. CARE CONTINUES
--- NOTE | 2025-05-27 19:32 | NUR ---
ASSUMPTION OF CARE ASSUMED PT'S CARE AT 1900,PT SITTING ON THE BEDSIDE COMMODE.REPORT COMPLETED OUTSIDE PT'S DOOR TO PROVIDE PT PRIVACY.PLAN OF CARE REVIEWED.PT DENIES NEEDS AT THIS TIME.CALL LIGHT AND PT'S ITEMS WITHIN REACH,VISITOR AT BEDSIDE.MONITORING ONGOING PER CAREPLAN.
[2025-05-27 20:34] VITALS: BP 135/103
--- NOTE | 2025-05-27 21:49 | NUR ---
TRANSFER NOTE: PATIENT TRANSFERED FROM PCU TO ROOM 355 MED FLOOR. RECEIVED REPORT FROM TATI GRIFFIN FROM PCU. PATIENT BROUGHT VIA WHEELCHAIR BY STANISLAV. PATIENT ORIENTED TO ROOM AND STAFF. ALL NEEDS MET AND CALL LIGHT WITHIN REACH.
[2025-05-28 00:51] LABS: A. FUMIGATUS #1 AB,PRECIPITIN None Detected (None Detected); A. FUMIGATUS #6 AB,PRECIPITIN None Detected (None Detected); A. PULLULANS AB,PRECIPITIN None Detected (None Detected); M. FAENI AB,PRECIPITIN Detected (None Detected); PIGEON SERUM AB,PRECIPITIN None Detected (None Detected)
[2025-05-28 03:06] VITALS: BP 111/58
--- NOTE | 2025-05-28 03:23 | NUR ---
SHIFT SUMMARY PT ALERT ORIENTED X 4 ABLE TO VERBALIZE NEEDS SHE WAS A TRANSFER FROM THE PCU AT 2144. SHE SAT UP IN THE RECLINER MOST OF THE SHIFT THEN WENT TO BED. SHE TRANSFERS TO COMMODE WITH ASSIST. C/O CRAMPING IN HER PELVIC AREA AND SLIGHT BEING DUE TO HER FIBROID TUMORS. REMAINS ON ROCEPHIN AND ZITHROMAX ORDERED FOR PNEUMONIA. SHE HAS A POWER GLIDE TO HER RT UPPER ARM. CONTINUES ON A CONTINUOUS PULSE OX AND IS CURRENTLY ON 3 L VIA NC. THERES A ORDER FOR A CPAP WHILE SLEEPING. HER BP WAS SLIGHTLY ELEVATED WHEN SHE GOT TO US AT 135/103. RESTING IN BED AT THIS TIME WITH CALL LIGHT IN REACH
[2025-05-28 05:54] LABS: BASOPHILS ABSOLUTE AUTO 0.01 K/mm3 (0.00-0.23); BASOPHILS PERCENT AUTO 0 % (0-2); EOSINOPHILS ABSOLUTE AUTO 0.11 K/mm3 (0.00-0.68); EOSINOPHILS PERCENT AUTO 2 % (0-6); Hematocrit 53.1 % (33.0-51.0); Hemoglobin 14.8 g/dL (11.5-16.0); IMMATURE GRAN ABSOLUTE AUTO 0.01 K/mm3 (0.00-0.10); IMMATURE GRAN PERCENT AUTO 0 % (0-1); LYMPHOCYTES ABSOLUTE AUTO 2.92 K/mm3 (0.84-5.20); LYMPHOCYTES PERCENT AUTO 42 % (21-46); MONOCYTES ABSOLUTE AUTO 0.64 K/mm3 (0.16-1.47); MONOCYTES PERCENT AUTO 9 % (4-13); Mean Corpuscular HGB Conc 27.9 g/dL (31.5-36.5); Mean Corpuscular Volume 80 fL (80-100); NEUTROPHILS ABSOLUTE AUTO 3.31 K/mm3 (1.96-9.15); NEUTROPHILS PERCENT AUTO 47 % (41-73); NRBC ABSOLUTE 0.00 K/mm3 (0.00-0.02); NRBC Auto 0.0 /100 WBC (0.0-0.2); Platelet Count 152 K/mm3 (150-400); RDW Coefficient Variation 20.6 % (11.7-14.2); RDW Standard Deviation 56.4 fL (35.1-46.3)
[2025-05-28 06:11] LABS: Alanine Aminotransfer (ALT/SGP 27.0 U/L (12-78); Albumin, Blood 3.3 g/dL (3.4-5.0); Albumin/Globulin Ratio 0.9 (0.8-1.8); Anion Gap 5.0 mmol/L (3-11); Aspartate Aminotrans (AST/SGOT 16.0 U/L (12-37); Bilirubin, Total 1.0 mg/dL (0.1-1.0); Blood Urea Nitrogen 30.0 mg/dL (8-24); CO2, Blood 32.0 mmol/L (21-32); Calcium, Blood 9.9 mg/dL (8.5-10.1); Chloride, Blood 109.0 mmol/L (98-108); Creatinine, Blood 0.91 mg/dL (0.40-1.00); Globulin, Blood 3.5 g/dL (2.2-4.0); Glucose, Blood 89.0 mg/dL (70-99); Magnesium, Blood 2.6 mg/dL (1.6-2.4); Phosphorus, Blood 3.1 mg/dL (2.5-4.9); Potassium, Blood 3.5 mmol/L (3.5-5.5); Sodium, Blood 142.0 mmol/L (136-145); Total Protein, Blood 6.8 g/dL (6.4-8.2)
[2025-05-28 08:51] VITALS: BP 117/77
[2025-05-28] MEDS ORDERED: AMLO5 PO (16:22)
[2025-05-28] MEDS ORDERED: CEFD300 PO (16:22)
[2025-05-28] MEDS ORDERED: JARDIANCE10 MG PO (16:23)
[2025-05-28] MEDS ORDERED: FURO40 PO (16:23)
[2025-05-28 16:24] VITALS: BP 124/67
[2025-05-28] MEDS ORDERED: LOSA50 PO (16:24)
--- NOTE | 2025-05-30 11:22 | NUR ---
LATE ENTRY LOSARTAN WAS ORDERED AT 0930 NOT GIVEN DUE TO VS OUT OF PERAMETERS. SCANNED IN ERROR, BUT NOT GIVEN. UNABLE TO UNDUE MEDICATION DOCUMENTATION. WITNESSED BY JENNIFER DUFFY.
== END 2025-05-28 17:00 | disposition home health service (06) | DRG 291 ==
LOC: ER 14:25 → PCU 18:09 → MEDS 18:09 → PCU 21:19 → MEDS 05-27 21:48
PROVIDERS: Emergency Medicine; Internal Medicine Critical Care Medicine; ADMIT Internal Medicine
PROC: 5A09357 Assistance with Respiratory Ventilation, Less than 24 Consecutive Hours, Continuous Positive Airway Pressure (ICD-10-PCS; principal; 2025-05-19)
PROC: 3E03329 Introduction of Other Anti-infective into Peripheral Vein, Percutaneous Approach (ICD-10-PCS; 2025-05-21)
PROC: 5A0935A Assistance with Respiratory Ventilation, Less than 24 Consecutive Hours, High Flow/Velocity Cannula (ICD-10-PCS; 2025-05-22)
DX: I11.0 Hypertensive heart disease with heart failure (principal); I50.33 Acute on chronic diastolic (congestive) heart failure; J18.9 Pneumonia, unspecified organism; J96.21 Acute and chronic respiratory failure with hypoxia; Z68.43 Body mass index [BMI] 50.0-59.9, adult; F32.A Depression, unspecified; E78.5 Hyperlipidemia, unspecified; G47.33 Obstructive sleep apnea (adult) (pediatric); J84.10 Pulmonary fibrosis, unspecified; I27.81 Cor pulmonale (chronic); E66.01 Morbid (severe) obesity due to excess calories; T50.1X6A Underdosing of loop [high-ceiling] diuretics, initial encounter; I48.91 Unspecified atrial fibrillation; R00.1 Bradycardia, unspecified; E83.41 Hypermagnesemia; Z86.711 Personal history of pulmonary embolism; Z91.138 Patient's unintentional underdosing of medication regimen for other reason; Z88.1 Allergy status to other antibiotic agents; Z88.5 Allergy status to narcotic agent; Z79.01 Long term (current) use of anticoagulants; Z99.81 Dependence on supplemental oxygen
CPT/HCPCS: 0202U; 36415; 71045; 71260; 80053; 83036; 83516; 83735; 83880; 84100; 84443; 84484; 85025; 85651; 86037; 86038; 86140; 86200; 86331; 86430; 86606; 86777; 86778; 87449; 93005; 93010; 93306; 94640; 94660; 94664; 94760; 94762; 96374-59; 97110; 97161; 97165; 97530; 97535; 99285-25; A6590; A9270; J0456; J0696; J1938; J2405; J2919; J7050; Q9967

== ENCOUNTER 2025-07-11 10:56 | Day surgery (SDC) | payer OTHER ==
[2025-07-11] VITALS (9 sets, daily range): BP systolic 100–166; BP diastolic 54–74
[~2025-07-11] VITALS: Ht 170.2 cm; Wt 143.0 kg
[~2025-07-11 10:56] MED LIST changes: +ALLEGRA ALLERG180 MG PO; +AMLO5 PO; +ATOR20 PO; -ATOR40TA PO; +B-12500 MC2 PO; +BUPROPION XL150 M1 PO; +CEFD300 PO; +CO Q10100 MG PO; +COQ-10100 MG; +FURO40 PO; +JARDIANCE10 MG PO; +LOSA50 PO; +MULTI-VITAMIN1 EAC2 PO; +OXYB5 PO; +POTCHL20ER PO; +TRAM50 PO
[2025-07-11] MEDS ORDERED: EYLEA2 MG/0.02 IO (11:46)
--- NOTE | 2025-07-11 11:50 | NUR ---
PATIENT ADMITTED TO [facility]. IN VIA W/C. ABLE TO TRANSFER INDEPENDANTLY. ON 3L N/C. LUNG SOUNDS CLEAR. History, Chart, Medications and Allergies reviewed before start of procedure. Pre-Op teaching done. Pt verbalizes understanding.
[2025-07-11] MEDS ORDERED: FentaNYL Citrate 50 MCG/ML 2 ML Injection ONE ×2 (12:35→13:45)
[2025-07-11] MEDS ORDERED: Rocuronium Bromide 10 MG/ML 5ML Injection IV ONE (12:36)
[2025-07-11] MEDS ORDERED: Ondansetron HCl 2 MG / ML 2ML Vial ONE (13:00)
[2025-07-11] MEDS ORDERED: Dexamethasone Sod Phos 10 MG/ML 1ML VIAL ONE (13:00)
[2025-07-11] MEDS ORDERED: Phenylephrine HCl 100 MCG/ML-NS 10MLSYR (1MG/10ML) ONE (13:05)
[2025-07-11] MEDS ORDERED: HYDROmorphone HCl/Pf 1MG SYR IV PRN ×2 (13:20)
[2025-07-11] MEDS ORDERED: Albuterol 2.5 MG/3 ML VIAL INH PRN (13:20)
[2025-07-11] MEDS ORDERED: Metoclopramide HCl 5MG / ML 2ML Vial IV PRN (13:20)
[2025-07-11] MEDS ORDERED: FentaNYL Citrate 50 MCG/ML 2 ML Injection IV PRN ×2 (13:20)
[2025-07-11] MEDS ORDERED: Sugammadex Sodium 200 MG/2ML SDV (100 MG/ML) ONE (13:22)
--- NOTE | 2025-07-11 15:28 | NUR ---
Patient States Post-Procedure ride home has been arranged. Discharged via wheelchair to private car for ride home. Discharge instructions reviewed with patient. Patient verbalizes understanding. Copy given to patient to take home.
== END 2025-07-11 22:00 | disposition home or self-care (01) ==
LOC: ORSCMMR 10:56 → ORD 12:30 → ORSCMMR 22:00
PROVIDERS: Obstetrics & Gynecology
PROC: 0UH97HZ Insertion of Contraceptive Device into Uterus, Via Natural or Artificial Opening (ICD-10-PCS; principal; 2025-07-11 12:30)
PROC: 0UDB8ZX Extraction of Endometrium, Via Natural or Artificial Opening Endoscopic, Diagnostic (ICD-10-PCS; principal; 2025-07-11 12:30)
DX: N84.0 Polyp of corpus uteri (principal); R93.89 Abnormal findings on diagnostic imaging of other specified body structures; N95.0 Postmenopausal bleeding; Z30.430 Encounter for insertion of intrauterine contraceptive device; Z86.718 Personal history of other venous thrombosis and embolism; I50.9 Heart failure, unspecified; Z79.01 Long term (current) use of anticoagulants; I48.91 Unspecified atrial fibrillation; Z86.711 Personal history of pulmonary embolism; G47.33 Obstructive sleep apnea (adult) (pediatric); E66.01 Morbid (severe) obesity due to excess calories; Z68.42 Body mass index [BMI] 45.0-49.9, adult; Z99.81 Dependence on supplemental oxygen; K21.9 Gastro-esophageal reflux disease without esophagitis
CPT/HCPCS: 88305; J1100; J2371; J2405; J2704; J3010; J7120; J7297